=== PATIENT | male | born 1970 | race Caucasian/White ===

== ENCOUNTER 2016-05-07 | Emergency (ER) | payer MEDICAID | END 2016-05-07 05:45 | disposition home or self-care (01) | DX: L30.9 Dermatitis, unspecified (principal) ==

== ENCOUNTER 2016-05-29 05:59 | Emergency (ER) | payer MEDICAID ==
[2016-05-29] MEDS ORDERED: LORazepam 0.5 MG TABLET PO STA (06:59)
[2016-05-29] MEDS ORDERED: LORazepam 0.5 MG TABLET ONE (07:04)
[2016-05-29] MEDS ORDERED: HYDROCORTISONE 1% CREAM 28 GM TUBE TOP STA (07:41)
== END 2016-05-29 09:08 | disposition home or self-care (01) ==
DX: F41.9 Anxiety disorder, unspecified (principal); L29.0 Pruritus ani; Z59.0 Homelessness; I10 Essential (primary) hypertension; F17.200 Nicotine dependence, unspecified, uncomplicated
CPT/HCPCS: 99283; A9270

== ENCOUNTER 2016-06-16 13:10 | Outpatient (CLI) | payer MEDICAID | END 2016-06-16 13:11 | disposition home or self-care (01) | DX: N43.40 Spermatocele of epididymis, unspecified (principal); N43.3 Hydrocele, unspecified ==

== ENCOUNTER 2017-03-23 07:59 | Emergency (ER) | payer MEDICAID ==
--- NOTE | 2017-03-23 08:10 | ED Physician Documentation ---
PD HPI URI - Stated complaint Stated Complaint: COUGH - History obtained from History obtained from: Patient - History of Present Illness Timing - onset: How many weeks ago (1) Timing duration: Weeks (1) Timing details: Gradual onset, Still present Associated symptoms: Fever, Chills, Productive cough, Dyspnea. No: NVD, Bilateral edema Contributing factors: No: Sick contact, Travel, Immunocompromised, COPD / asthma Worsened by: Activity Similar symptoms before: Has not had sx before Recently seen: Not recently seen Review of Systems Constitutional: reports: Fever, Chills, Myalgias, Fatigue. denies: Weight Loss Nose: reports: Congestion. denies: Rhinorrhea / runny nose, Sinus pressure / pain Throat: denies: Sore throat Cardiac: denies: Chest pain / pressure, Palpitations Respiratory: reports: Dyspnea, Cough, Wheezing GI: denies: Vomiting, Diarrhea Skin: denies: Rash Neurologic: reports: Generalized weakness Endocrine: denies: Weight loss Immunocompromised: denies: Immunocompromised PD PAST MEDICAL HISTORY - Past Medical History Cardiovascular: Hypertension - Past Surgical History Past Surgical History: No General: Appendectomy - Present Medications Home Medications: Ambulatory Orders Medication Instructions Recorded Confirmed Albuterol Sulf [Ventolin Hfa 1 - 2 puffs INH Q4HR PRN #1 inhaler 03/23/17 Inhaler] Benzonatate [Tessalon] 100 mg PO TID PRN #25 capsule 03/23/17 Dexamethasone [Decadron] 4 mg PO DAILY #5 tablet 03/23/17 Doxycycline Monohydrate 100 mg PO BID #20 tablet 03/23/17 guaiFENesin/CODEINE [Robitussin AC] 10 ml PO Q6H PRN #240 ml 03/23/17 - Allergies Allergies/Adverse Reactions: Allergies Allergy/AdvReac Type Severity Reaction Status Date / Time No Known Drug Allergies Allergy Verified 03/23/17 08:12 - Living Situation Living Situation: reports: Alone Living Arrangement: reports: Homeless - Social History Does the pt smoke?: Yes Smoking Status: Current every day smoker Does the pt drink ETOH?: Yes Does the pt have substance abuse?: No - Immunizations Immunizations are current?: No - POLST Patient has POLST: No PD ED PE NORMAL - Vitals Vital signs reviewed: Yes - General General: Alert and oriented X 3, Well developed/nourished, Other (wheezy repetitive cough. No resp distress.) - HEENT HEENT: Ears normal, Pharynx benign - Neck Neck: Supple, no meningeal sign, No adenopathy - Cardiac Cardiac: RRR, No murmur - Respiratory Respiratory: No respiratory distress. No: Clear bilaterally (wheezing diffusely. No coarse sounds. ) - Abdomen Abdomen: Soft, Non tender - Back Back: No CVA TTP - Derm Derm: Normal color, Warm and dry - Extremities Extremities: No deformity, No tenderness to palpate, Normal ROM s pain, No edema , No calf tenderness / cord - Neuro Neuro: Alert and oriented X 3, No motor deficit, Normal speech - Psych Psych: Normal mood, Normal affect Results - Vitals Vitals: Vital Signs - 24 hr 03/23/17 03/23/17 03/23/17 08:09 08:45 10:44 Temperature 37.7 C H 37.8 C H Heart Rate 76 81 97 Respiratory 16 16 18 Rate Blood Pressure 110/72 90/69 O2 Saturation 98 97 Oxygen O2 Source Room air - Labs Labs: Laboratory Tests 03/23/17 03/23/17 08:47 08:47 WBC 15.9 H RBC 3.99 L Hgb 13.2 L Hct 37.9 L MCV 95.1 H MCH 33.2 H MCHC 34.9 RDW 13.1 Plt Count 584 H MPV 5.7 L Neut # 12.5 H Lymph # 1.[address] [place] # 2.2 H Eos # 0.0 Baso # 0.1 Absolute Nucleated RBC 0.00 Nucleated RBC % 0.0 Manual Slide Review Indicated Platelet Estimate INCREASED (>450,000) RBC Morph Micro Appear 1+ ANISOCYTOSIS Sodium 129 L Potassium 3.9 Chloride 90 L Carbon Dioxide 23 Anion Gap 16.0 H BUN 8 Creatinine 0.8 Estimated GFR (MDRD) 103 Glucose 122 H Calcium 8.9 Total Bilirubin 1.1 H AST 17 ALT 20 Alkaline Phosphatase 68 Total Protein 7.1 Albumin 3.2 Globulin 3.9 Albumin/Globulin Ratio 0.8 L Lipase 19 L - Rads (name of study) chest Radiology: Prelim report reviewed (lingular infiltrate c/w pneumonia. Recommend 4 week repeat to ensure resolution), EMP read contemporaneously PD MEDICAL DECISION MAKING - ED course Complexity details: reviewed old records, reviewed results, re-evaluated patient , considered differential, d/w patient Departure - Departure Disposition: 01 Home, Self Care Clinical Impression: Cough Pneumonia Qualifiers: Pneumonia type: due to unspecified organism Laterality: left Lung location: lower lobe of lung Qualified Code(s): J18.1 - Lobar pneumonia, unspecified organism Condition: Stable Record reviewed to determine appropriate education?: Yes Instructions: ED Pneumonia Adult Prescriptions: Albuterol Sulf [Ventolin Hfa Inhaler] 1 - 2 puffs INH Q4HR PRN #1 inhaler PRN Reason: Shortness Of Air/Wheezing Benzonatate [Tessalon] 100 mg PO TID PRN #25 capsule PRN Reason: Cough Dexamethasone [Decadron] 4 mg PO DAILY #5 tablet Doxycycline Monohydrate 100 mg PO BID #20 tablet guaiFENesin/CODEINE [Robitussin AC] 10 ml PO Q6H PRN #240 ml PRN Reason: Cough Comments: Lots of fluids. Use albuterol inhaler 2 puffs 4 times a day for the next several weeks. Added puffs if needed for wheezing and cough. Decadron steroid daily for 5 more days to reduce cough and bronchial irritation. Use cough medicine and benzoin 08 if needed for cough. Doxycycline twice daily for 10 days for the pneumonia infection. Recheck if not improving over the next few days. You will likely have a cough continue for a few weeks even after you are feeling improved. Discharge Date/Time: 03/23/17 10:50
[2017-03-23] MEDS ORDERED: guaiFENesin/CODEINE 5 ML UDC PO STA (08:24)
[2017-03-23] MEDS ORDERED: ALBUTEROL NEB 2.5 MG/3 ML INH STA (08:24)
[2017-03-23] MEDS ORDERED: DEXAMETHASONE 10 MG/ML VIAL PO STA (08:24)
[2017-03-23] MEDS ORDERED: BENZONATATE 100 MG CAPSULE PO STA (08:24)
[2017-03-23] MEDS ORDERED: ACETAMINOPHEN 325 MG TABLET PO STA (08:24)
[2017-03-23 08:52] LABS: BASOPHILS # (AUTO) 0.1 10^3/uL (0.0-0.1); BASOPHILS % (AUTO) 0.6 %; HGB - HEMOGLOBIN 13.2 g/dL (14.0-18.0); LYMPHOCYTES # (AUTO) 1.2 10^3/uL (1.5-3.5); LYMPHOCYTES % (AUTO) 7.4 %; MEAN CORPUSCULAR HEMOGLOBIN 33.2 pg (27.0-31.0); MEAN CORPUSCULAR HGB CONC 34.9 g/dL (32.0-36.0); MEAN CORPUSCULAR VOLUME 95.1 fL (80.0-94.0); MEAN PLATELET VOLUME 5.7 fL (7.4-11.4); MONOCYTES # (AUTO) 2.2 10^3/uL (0.0-1.0); MONOCYTES % (AUTO) 13.8 %; NEUTROPHILS # (AUTO) 12.5 10^3/uL (1.5-6.6); NEUTROPHILS % (AUTO) 78.2 %; PLT - PLATELET COUNT 584 10^3/uL (130-450); RED BLOOD COUNT 3.99 10^6/uL (4.70-6.10); RED CELL DISTRIBUTION WIDTH 13.1 % (12.0-15.0); WHITE BLOOD COUNT 15.9 x10^3/uL (4.8-10.8)
--- NOTE | 2017-03-23 08:54 | XRAY Report ---
EXAM: CHEST RADIOGRAPHY EXAM DATE: 03/23/2017 08:40 AM. CLINICAL HISTORY: Chest pain left-sided. Cough for 7 days. COMPARISON: None. TECHNIQUE: 2 views. FINDINGS: Lungs/Pleura: Lingular masslike consolidation noted. No pleural effusions or pneumothorax. Mediastinum: Heart and mediastinal contours are unremarkable. Other: Mild degenerative changes of the thoracic spine. IMPRESSION: 1. Lingular masslike consolidation most likely representing pneumonia. Follow-up radiographs are ivy mmended in 4 weeks to assess for resolution. [facility] Referring Provider Line: [phone] SITE ID: [id number]
--- NOTE | 2017-03-23 08:54 | XRAY Preliminary Report ---
Exam: XR CHEST 2 VIEW X-RAY IMPRESSION: 1. Lingular masslike consolidation most likely representing pneumonia. Follow-up radiographs are ivy mmended in 4 weeks to assess for resolution. [facility] SITE ID: [id number]
[2017-03-23] MEDS ORDERED: DOXYCYCLINE 100 MG TABLET PO STA (08:58)
[2017-03-23 09:06] LABS: ALBUMIN 3.2 g/dL (3.2-5.5); ALBUMIN/GLOBULIN RATIO 0.8 (1.0-2.2); BILIRUBIN,TOTAL 1.1 mg/dL (0.2-1.0); CALCIUM 8.9 mg/dL (8.5-10.3); CREATININE 0.8 mg/dL (0.6-1.2); TOTAL PROTEIN 7.1 g/dL (6.7-8.2)
[2017-03-23 09:17] LABS: PLATELET ESTIMATE, MANUAL INCREASED (>450,000) (NORMAL); RBC MORPHOLOGY (MULTIPLE) 1+ ANISOCYTOSIS (NORMAL)
[2017-03-23 10:45] VITALS: BP 90/69
== END 2017-03-23 10:50 | disposition home or self-care (01) ==
LOC: ED 07:59
DX: J18.9 Pneumonia, unspecified organism (principal); I10 Essential (primary) hypertension; F17.200 Nicotine dependence, unspecified, uncomplicated; Z59.0 Homelessness
CPT/HCPCS: 36415; 71046; 80053; 83690; 85025; 94640; 99283; A9270; J7613

== ENCOUNTER 2017-03-31 06:58 | Emergency (ER) | payer MEDICAID ==
[2017-03-31] MEDS ORDERED: SODIUM CHLORIDE 0.9% 1,000 ML IV ONE (07:19)
--- NOTE | 2017-03-31 07:23 | ED Physician Documentation ---
History of Present Illness - Stated complaint Stated Complaint: DIFFICULTY BREATHING - Chief complaint Chief Complaint: Resp - Additonal information Additional information: hx from pt 47 male states no Pmhx homeless staying at [facility] where many people are sick with cough cold sx and living in close quarters no recent travel seen in ER 03/23 for cough and dx pna rx doxy decadron tessalon and albuterol not sure if he he finished all the antibiotics " I took the blue pills but not all the pink ones" still coughing feels SOA his chest hurts when he coughs fatigue no documented fever no myalgais no NV some loose BM no edema or leg pain Review of Systems Constitutional: reports: Fatigue. denies: Fever, Chills, Myalgias Cardiac: reports: Chest pain / pressure (with coughing) Respiratory: reports: Dyspnea, Cough GI: reports: Diarrhea. denies: Abdominal Pain, Nausea, Vomiting Musculoskeletal: denies: Extremity pain, Extremity swelling Endocrine: denies: Easy bruising / bleeding Immunocompromised: denies: Immunocompromised PD PAST MEDICAL HISTORY - Past Medical History Cardiovascular: Hypertension Other Past Medical History: pt states he does not have a hx of HTN despite NN - Past Surgical History Past Surgical History: No General: Appendectomy - Present Medications Home Medications: Ambulatory Orders Medication Instructions Recorded Confirmed Albuterol Sulf [Ventolin Hfa 1 - 2 puffs INH Q4HR PRN #1 inhaler 03/23/17 Inhaler] Benzonatate [Tessalon] 100 mg PO TID PRN #25 capsule 03/23/17 03/31/17 guaiFENesin/CODEINE [Robitussin AC] 5 - 10 ml PO Q6H PRN #120 udc 03/31/17 predniSONE [Deltasone] 20 mg PO [id number] #21 tab 03/31/17 - Allergies Allergies/Adverse Reactions: Allergies Allergy/AdvReac Type Severity Reaction Status Date / Time No Known Drug Allergies Allergy Verified 03/31/17 07:05 - Social History Does the pt smoke?: Yes Smoking Status: Current every day smoker Does the pt drink ETOH?: Yes Does the pt have substance abuse?: No - Immunizations Immunizations are current?: No - POLST Patient has POLST: No PD ED PE NORMAL - Vitals Vital signs reviewed: Yes - General General: Alert and oriented X 3, Other (anxious) - HEENT HEENT: PERRL - Neck Neck: Supple, no meningeal sign - Cardiac Cardiac: RRR - Respiratory Respiratory: Other (deep cough, no wheeze) - Abdomen Abdomen: Soft, Non tender - Derm Derm: Normal color - Extremities Extremities: No deformity, No tenderness to palpate, Normal ROM s pain, No edema , No calf tenderness / cord - Neuro Neuro: Alert and oriented X 3 Results - Vitals Vitals: Vital Signs - 24 hr 03/31/17 03/31/17 07:03 08:25 Temperature 37.1 C Heart Rate 87 45 L Respiratory 20 18 Rate Blood Pressure 101/70 104/75 O2 Saturation 97 95 Oxygen O2 Source Room air - Labs Labs: Laboratory Tests 03/31/17 03/31/17 03/31/17 07:15 07:15 07:30 WBC 8.6 RBC 4.06 L Hgb 13.0 L Hct 39.9 L MCV 98.3 H MCH 32.0 H MCHC 32.5 RDW 13.7 Plt Count 556 H MPV 5.6 L Neut # 6.0 Lymph # 1.1 L [place] # 1.3 H Eos # 0.1 Baso # 0.0 Absolute Nucleated RBC 0.00 Nucleated RBC % 0.0 Manual Slide Review Indicated RBC Morph Micro Appear 1+ ANISOCYTOSIS Sodium 134 L Potassium 4.0 Chloride 97 L Carbon Dioxide 27 Anion Gap 10.0 BUN 10 Creatinine 0.7 Estimated GFR (MDRD) 120 Glucose 95 Lactic Acid 1.4 Calcium 8.7 - Rads (name of study) CXR Radiology: See rad report (prior infiltrate improved, increased perihilar bronchial thickening and mild perihilar oapcities (more c/w RAD)) Departure - Departure Disposition: Home, Self Care Clinical Impression: Pneumonia Qualifiers: Pneumonia type: due to unspecified organism Laterality: left Lung location: unspecified part of lung Qualified Code(s): J18.9 - Pneumonia, unspecified organism Reactive airway disease Qualifiers: Asthma severity: unspecified severity Asthma persistence: unspecified Asthma complication type: with acute exacerbation Qualified Code(s): J45.901 - Unspecified asthma with (acute) exacerbation Instructions: ED Reactive Airway Disease Prescriptions: guaiFENesin/CODEINE [Robitussin AC] 5 - 10 ml PO Q6H PRN #120 udc PRN Reason: Cough predniSONE [Deltasone] 20 mg PO [id number] #21 tab Comments: The pneumonia looks much better on xrays to day You still need to get a 6 weeks repeat xray to document full resolution. You don't need more antibiotics at this time. You still have a lot of inflamed airway disease causing the continued symptoms But I did prescribe a stronger cough medication (it contains codeine so no driving or operating machinery) and more steroids to decrease the airway inflammation. Continue using your inhaler - you can use 2 puffs every 4 hr for the cough and trouble breathing. If you smoke please stop. Return if worse
[2017-03-31 07:29] LABS: BASOPHILS % (AUTO) 0.4 %; EOSINOPHILS # (AUTO) 0.1 10^3/uL (0.0-0.7); EOSINOPHILS % (AUTO) 1.2 %; LYMPHOCYTES # (AUTO) 1.1 10^3/uL (1.5-3.5); LYMPHOCYTES % (AUTO) 12.9 %; MEAN CORPUSCULAR HGB CONC 32.5 g/dL (32.0-36.0); MEAN CORPUSCULAR VOLUME 98.3 fL (80.0-94.0); MEAN PLATELET VOLUME 5.6 fL (7.4-11.4); MONOCYTES # (AUTO) 1.3 10^3/uL (0.0-1.0); MONOCYTES % (AUTO) 15.5 %; PLT - PLATELET COUNT 556 10^3/uL (130-450); RED BLOOD COUNT 4.06 10^6/uL (4.70-6.10); RED CELL DISTRIBUTION WIDTH 13.7 % (12.0-15.0); WHITE BLOOD COUNT 8.6 x10^3/uL (4.8-10.8)
[2017-03-31 07:34] LABS: CALCIUM 8.7 mg/dL (8.5-10.3); CREATININE 0.7 mg/dL (0.6-1.2)
[2017-03-31 07:46] LABS: RBC MORPHOLOGY (MULTIPLE) 1+ ANISOCYTOSIS (NORMAL)
--- NOTE | 2017-03-31 08:19 | XRAY Preliminary Report ---
Exam: XR CHEST 2 VIEW X-RAY IMPRESSION: 1. Interval moderate decrease in the prior patchy infiltrate in the lingula. 2. However, slight to moderate worsening bilateral mild perihilar opacity and perihilar bronchial wal l thickening. [facility] SITE ID: [id number]
--- NOTE | 2017-03-31 08:19 | XRAY Report ---
EXAM: CHEST RADIOGRAPHY EXAM DATE: 03/31/2017 07:48 AM. CLINICAL HISTORY: COUGH. COMPARISON: 03/23/2017. TECHNIQUE: 2 views. FINDINGS: Lungs/Pleura: The prior focal patchy opacity lingula is moderately decreased. However, interval sligh t to moderate worsening bilateral mild perihilar opacity and perihilar bronchial wall thickening is n oted. No pleural effusion. No pneumothorax. Normal volumes. Mediastinum: Heart and mediastinal contours are unremarkable. IMPRESSION: 1. Interval moderate decrease in the prior patchy infiltrate in the lingula. 2. However, slight to moderate worsening bilateral mild perihilar opacity and perihilar bronchial wal l thickening. [facility] Referring Provider Line: [phone] SITE ID: [id number]
[2017-03-31 08:27] VITALS: BP 104/75
== END 2017-03-31 09:18 | disposition home or self-care (01) ==
LOC: ED 06:58
DX: J18.9 Pneumonia, unspecified organism (principal); J45.901 Unspecified asthma with (acute) exacerbation; Z59.0 Homelessness; F17.200 Nicotine dependence, unspecified, uncomplicated
CPT/HCPCS: 36415; 71046; 80048; 83605; 85025; 87040; 96360; 99283

== ENCOUNTER 2017-09-30 16:45 | Emergency (ER) | payer MEDICAID ==
[2017-09-30] MEDS ORDERED: LORATADINE 10 MG TABLET PO STA (17:54)
[2017-09-30] MEDS ORDERED: DEXAMETHASONE 10 MG/ML VIAL PO STA (17:54)
--- NOTE | 2017-09-30 18:09 | ED Physician Documentation ---
History of Present Illness - Stated complaint Stated Complaint: POSS ALLERGIC REACTION/MOUTH AND FACE - Chief complaint Chief Complaint: Resp - Additonal information Additional information: hx from pt 47 male to ED with two concers 1) had pna few months ago and has productive cough again 2) has swollen spots on his palate and thinks he has an envirnemtla allergy and is concerned it might sprad to his airways also has been seen by urology for hydrocele and spermatocele and surgery was not recommended but the sprematocele is larger and so he is planning to go back and see urology again - but that is not a concern that brought him to the ER Review of Systems Constitutional: denies: Fever, Chills Throat: reports: Other (palate swelling) Respiratory: reports: Cough GI: denies: Abdominal Pain, Nausea, Vomiting, Diarrhea Endocrine: denies: Easy bruising / bleeding Immunocompromised: denies: Immunocompromised PD PAST MEDICAL HISTORY - Past Medical History Cardiovascular: Hypertension - Past Surgical History Past Surgical History: No General: Appendectomy - Present Medications Home Medications: Ambulatory Orders Medication Instructions Recorded Confirmed Benzonatate [Tessalon] 100 mg PO TID PRN #20 capsule 09/30/17 Loratadine [Claritin] 10 mg PO DAILY #3 tablet 09/30/17 predniSONE [Deltasone] 60 mg PO DAILY 3 Days tablet 09/30/17 - Allergies Allergies/Adverse Reactions: Allergies Allergy/AdvReac Type Severity Reaction Status Date / Time No Known Drug Allergies Allergy Verified 09/30/17 16:52 - Social History Does the pt smoke?: Yes Smoking Status: Current every day smoker Does the pt drink ETOH?: Yes Does the pt have substance abuse?: No - Immunizations Immunizations are current?: No - POLST Patient has POLST: No PD ED PE NORMAL - Vitals Vital signs reviewed: Yes - General General: Alert and oriented X 3 - HEENT HEENT: Moist mucous membranes, Other (small spots of edema s erytehma to exudate to palate, no uvula or tongue swelling) - Neck Neck: Supple, no meningeal sign - Cardiac Cardiac: RRR - Respiratory Respiratory: No respiratory distress, Clear bilaterally, Other (no ronchi, coughs) - Derm Derm: Normal color, Other (no hives) - Neuro Neuro: Alert and oriented X 3 Results - Vitals Vitals: Vital Signs - 24 hr 09/30/17 16:49 Temperature 36.8 C Heart Rate 78 Respiratory 22 Rate Blood Pressure 116/83 H O2 Saturation 98 Oxygen O2 Source Room air - EKG (time done) 1700 Rate: Rate (enter#) (70) Rhythm: NSR Sprakers: Normal Intervals: Normal HI Ischemia: ST elevation c/w repol Other comments: Other comments (EKG ordered per protocol from triage) - Rads (name of study) CXR Radiology: See rad report (improving residual streaky opacities c/w resolving infection) PD MEDICAL DECISION MAKING - Sepsis Event Vital Signs: Vital Signs - 24 hr 09/30/17 16:49 Temperature 36.8 C Heart Rate 78 Respiratory 22 Rate Blood Pressure 116/83 H O2 Saturation 98 Oxygen O2 Source Room air Departure - Departure Disposition: 01 Home, Self Care Clinical Impression: Allergic reaction Qualifiers: Encounter type: initial encounter Qualified Code(s): T78.40XA - Allergy, unspecified, initial encounter Condition: Good Instructions: ED Drug React Allergic Prescriptions: Benzonatate [Tessalon] 100 mg PO TID PRN #20 capsule PRN Reason: to ease cough Loratadine [Claritin] 10 mg PO DAILY #3 tablet predniSONE [Deltasone] 60 mg PO DAILY 3 Days tablet Comments: The xray does not show pneumonia - the prior infection is resolving I have prescribed medications to ease your allergic reaction and cough Please follow up with your urologist as planned
[2017-09-30] MEDS ORDERED: CHERRY SYRUP 10 ML UDC PO ONE (18:17)
--- NOTE | 2017-09-30 18:43 | XRAY Report ---
Procedure Date: 09/30/2017 Accession Number: [id number] / [id number] Procedure: XR - Chest 2 View X-Ray CPT Code: 04267 FULL RESULT: EXAM: CHEST RADIOGRAPHY EXAM DATE: 09/30/2017 06:16 PM. CLINICAL HISTORY: Cough. COMPARISON: Chest radiograph 03/31/2017 and 03/23/2017. TECHNIQUE: 2 views. FINDINGS: Lungs/Pleura: Minimal residual streaky opacity in the lingula, likely postinfectious/inflammatory given prior pneumonia at this site. No new/worsening airspace opacity. Mild bronchial wall thickening, improved since prior exam. No pleural effusion. No pneumothorax. Lung volumes are borderline large. Mediastinum: Heart and mediastinal contours are unremarkable. Other: None. IMPRESSION: 1. No dense focal consolidation with improving streaky opacities in the lingula, likely postinfectious/inflammatory. 2. Mild bronchial wall thickening with borderline pulmonary hyperexpansion, the former improved compared to prior exam. Findings are nonspecific and can be seen with reactive airways disease or bronchitis. [facility]
[2017-09-30 19:28] VITALS: BP 110/72
== END 2017-09-30 19:28 | disposition home or self-care (01) ==
LOC: ED 16:45
DX: T78.40XA Allergy, unspecified, initial encounter (principal); I10 Essential (primary) hypertension; F17.200 Nicotine dependence, unspecified, uncomplicated
CPT/HCPCS: 71046; 93005; 99283; A9270

== ENCOUNTER 2019-12-18 00:37 | Emergency (ER) | payer MEDICAID ==
[2019-12-18 00:51] VITALS: BP 119/73
--- NOTE | 2019-12-18 01:54 | ED Physician Documentation ---
History of Present Illness - Stated complaint Stated Complaint: TOE SWELLING - Chief complaint Chief Complaint: General - History obtained from History obtained from: Patient - History of Present Illness Timing: Other (2 months) Pain level max: 2 Pain level now: 0 - Additonal information Additional information: patient sustained injury to left 2nd toe in October for which he evaluated in this ED, diagnosed with fracture of left second proximal phalanx. He was given a walking boot and instructed to follow up with orthopedic surgery within one week (this is documented on the discharge sheets and office information for both [facility] and [facility] were provided). Despite this, patient comes to ED tonight for reevaluation of his toe. He says it still is painful, but mildly so and has been steadily improving since the injury, and that swelling also persists but has similarly been slowly improving. He tells me that he was under the impression that he was supposed to return to this emergency department for follow up and that is the only reason he is here. He denies new injury and says he has been wearing the boot provided him on previous ED visit Review of Systems Musculoskeletal: reports: Other (mild swelling and tenderness of left second toe, persisting but improving since injury 2 months ago) Neurologic: denies: Focal weakness, Numbness PD PAST MEDICAL HISTORY - Past Medical History Past Medical History: Yes Cardiovascular: Hypertension - Past Surgical History Past Surgical History: No General: Appendectomy HEENT: Tonsil/Adenoidectomy - Present Medications Home Medications: Ambulatory Orders Medication Instructions Recorded Confirmed No Known Home Medications 12/18/19 12/18/19 - Allergies Allergies/Adverse Reactions: Allergies Allergy/AdvReac Type Severity Reaction Status Date / Time No Known Drug Allergies Allergy Verified 12/18/19 00:48 - Social History Does the pt smoke?: Yes Smoking Status: Current every day smoker Does the pt drink ETOH?: Yes Does the pt have substance abuse?: No - Immunizations Immunizations are current?: No - POLST Patient has POLST: No PD ED PE NORMAL - Vitals Vital signs reviewed: Yes - General General: Alert and oriented X 3, No acute distress, Well developed/nourished - Extremities Extremities: Other (minimal swelling and tenderness to palpation of left second toe at proximal phalanx) - Neuro Neuro: No motor deficit, No sensory deficit Results - Vitals Vitals: Vital Signs - 24 hr 12/18/19 12/18/19 00:44 04:57 Temperature 36.5 C Heart Rate 76 70 Respiratory 18 16 Rate Blood Pressure 119/73 119/73 O2 Saturation 99 98 Oxygen O2 Source Room air PD MEDICAL DECISION MAKING - ED course Complexity details: reviewed old records, considered differential, d/w patient ED course: patient presents 2 months after previous ED evaluation for fractured left 2nd proximal (toe) phalanx with persistent but steadily improving swelling and tenderness. He indicates that he was under the impression that he was to return to this ED for follow up/recheck. Emergent testing not indicated (including reimaging). Departure - Departure Disposition: Home, Self Care Clinical Impression: Toe fracture, left Condition: Good Instructions: ED Fx Foot Follow-Up: [facility] [Provider Group] [facility] [Provider Group] Comments: You need to change the gauze and retape the toes ("octavio splinting") once per day, and you can discontinue the octavio splinting after 7-10 days. If you continue to have pain or swelling, follow up with the orthopedic group (information for the office location and phone number are included in these discharge sheets). Discharge Date/Time: 12/18/19 04:58
== END 2019-12-18 04:58 | disposition home or self-care (01) ==
LOC: ED 00:37
DX: S92.502D Displaced unspecified fracture of left lesser toe(s), subsequent encounter for fracture with routine healing (principal); F17.200 Nicotine dependence, unspecified, uncomplicated
CPT/HCPCS: 99282

== ENCOUNTER 2020-05-17 00:27 | Emergency (ER) | payer MEDICAID ==
[2020-05-17] MEDS ORDERED: IPRATROPIUM/ALBUTEROL 3 ML NEB INH STA (00:49)
[2020-05-17] MEDS ORDERED: ALBUTEROL NEB 2.5 MG/3 ML INH STA (00:49)
[2020-05-17] MEDS ORDERED: ALBUTEROL 1 PUFF INH STA (00:49)
--- NOTE | 2020-05-17 00:55 | ED Physician Documentation ---
History of Present Illness - Stated complaint Stated Complaint: SOA - Chief complaint Chief Complaint: Resp - History obtained from History obtained from: Patient - Additonal information Additional information: 50-year-old man with history of chronic bronchitis, prior history of pneumonia 3 years ago requiring hospitalization, daily smoker, undomiciled, presents with Acute shortness of breath starting a few hours prior to arrival but did not self resolve. Patient states that he does not take medications and does not have a rescue inhaler. He has not been feeling sick recently and endorses no fever chills chest pain or cough. Does experience some chest tightness at present and moderate dyspnea, worse with exertion. no nausea or diaphoresis. Review of Systems Ten Systems: 10 systems reviewed and negative Constitutional: denies: Fever, Chills Cardiac: denies: Chest pain / pressure Respiratory: reports: Dyspnea, Wheezing. denies: Cough PD PAST MEDICAL HISTORY - Past Medical History Cardiovascular: Hypertension - Past Surgical History Past Surgical History: No General: Appendectomy HEENT: Tonsil/Adenoidectomy - Present Medications Home Medications: Ambulatory Orders Medication Instructions Recorded Confirmed Albuterol Oral Soln [Ventolin] 2 mg PO Q6H PRN #5 ml 05/17/20 - Allergies Allergies/Adverse Reactions: Allergies Allergy/AdvReac Type Severity Reaction Status Date / Time No Known Drug Allergies Allergy Verified 05/17/20 00:39 - Social History Does the pt smoke?: Yes Smoking Status: Current every day smoker Does the pt drink ETOH?: Yes Does the pt have substance abuse?: No - Immunizations Immunizations are current?: No - POLST Patient has POLST: No PD ED PE NORMAL - Vitals Vital signs reviewed: Yes - General General: Alert and oriented X 3, Other (uncomfortable appearing) - HEENT HEENT: Atraumatic, PERRL, EOMI - Neck Neck: Supple, no meningeal sign - Cardiac Cardiac: RRR - Respiratory Respiratory: Other (BL diffuse wheezing, no increased wob) - Abdomen Abdomen: Non tender, Non distended - Male Male : Deferred - Rectal Rectal: Deferred - Derm Derm: Normal color, Warm and dry - Extremities Extremities: No deformity Results - Vitals Vitals: Vital Signs - 24 hr 05/17/20 05/17/20 05/17/20 00:30 00:54 01:30 Temperature 97.2 C H 36.2 C L Heart Rate 79 79 80 Respiratory 22 22 Rate Blood Pressure 95/63 O2 Saturation 99 Oxygen O2 Source Room air PD MEDICAL DECISION MAKING - ED course ED course: 50-year-old man presents with apparent mild COPD exacerbation. Will give duo nebs and reassess. wheezing resolved with nebs. strict return precautions given. script for rescue inhaler given. patient will f/u paz nino in clinic. Departure - Departure Disposition: 01 Home, Self Care Clinical Impression: COPD exacerbation Condition: Good Instructions: COPD Dc, ALBUTEROL Oral Inhaler Follow-Up: Stefanie Zheng MD [Provider Admit Priv/Credential] - Prescriptions: Albuterol Oral Soln [Ventolin] 2 mg PO Q6H PRN #5 ml PRN Reason: shortness of breath Comments: You were seen in the emergency department for an exacerbation of your chronic bronchitis. You were prescribed an albuterol inhaler. Whenever you have shortness of breath you should try to using the inhaler and it may help. Return to the emergency department if you develop any new or worsening symptoms or other concerns. Follow-up at the [facility] clinic or with Dr. Zheng. Paz nino in clinic [address] [facility]. [facility]
[2020-05-17 02:07] VITALS: BP 100/70
--- NOTE | 2020-05-17 05:33 | XRAY Report ---
PROCEDURE: Chest 1 View X-Ray INDICATIONS: sob TECHNIQUE: One view of the chest was acquired. COMPARISON: 2 view chest 09/30/2017 FINDINGS: Surgical changes and devices: None. Lungs and pleura: No pleural effusions or pneumothorax. Lungs are clear. Mediastinum: Mediastinal contours appear normal. Heart size is normal. Bones and chest wall: No suspicious bony lesions. Overlying soft tissues appear unremarkable. IMPRESSION: Normal for age, source of current shortness of breath is not seen. Reviewed by: Art Alvarez MD on 05/17/2020 5:32 AM PST Approved by: Art Alvarez MD on 05/17/2020 5:32 AM PST Station ID: [id number]
== END 2020-05-17 02:18 | disposition home or self-care (01) ==
LOC: ED 00:27
DX: J44.1 Chronic obstructive pulmonary disease with (acute) exacerbation (principal); F17.200 Nicotine dependence, unspecified, uncomplicated; I10 Essential (primary) hypertension; Z59.0 Homelessness
CPT/HCPCS: 94640; 94664; 99284

== ENCOUNTER 2020-05-17 10:42 | Outpatient (CLI) | payer MEDICAID | END 2020-05-17 10:43 | disposition EMS.NT | LOC: EMS 10:42 | DX: Z03.89 Encounter for observation for other suspected diseases and conditions ruled out (principal); Z59.0 Homelessness ==

== ENCOUNTER 2020-06-25 18:45 | Emergency (ER) | payer MEDICAID ==
--- OUTSIDE RECORDS SUMMARY | 2020-06-25 18:49 | EXTERNAL MEDICAL SUMMARY RPT | Continuity of Care Document ---
:1970 Demographics Phone Unavailable Preferred Language Unknown Marital Status Unknown Episcopalian Affiliation Unknown Race Unknown Ethnic Group Unknown Author Organization [place] Address [address] [phone] Phone Social History date description facility [phone]
--- OUTSIDE RECORDS SUMMARY | 2020-06-25 19:25 | EXTERNAL MEDICAL SUMMARY RPT | Continuity of Care Document ---
:1970 Demographics Phone Unavailable Preferred Language Unknown Marital Status Unknown Catholic Affiliation Unknown Race Unknown Ethnic Group Unknown Author Organization [place] Address [address] [place] [address] Phone Social History date description facility [phone]
--- NOTE | 2020-06-25 19:28 | ED Physician Documentation ---
PD HPI UPPER EXT INJURY - Stated complaint Stated Complaint: FEET PX - Chief complaint Chief Complaint: Ext Problem - History obtained from History obtained from: Patient - History of Present Illness Location: Both (50-year-old gentleman experiencing homelessness presents because both of his feet hurt from walking too much. Denies fevers or chills.) Review of Systems Constitutional: denies: Fever, Chills Respiratory: reports: Reviewed and negative GI: reports: Reviewed and negative : reports: Reviewed and negative PD PAST MEDICAL HISTORY - Past Medical History Cardiovascular: Hypertension - Past Surgical History Past Surgical History: No General: Appendectomy HEENT: Tonsil/Adenoidectomy - Present Medications Home Medications: Ambulatory Orders Medication Instructions Recorded Confirmed Albuterol Sulfate [Proair Hfa 1 - 2 puffs INH Q4H PRN #1 inhaler 05/17/20 Inhaler] Clindamycin Phos/Benzoyl Perox 1 appful TP BID #2 06/25/20 [Benzaclin Gel 35G Pump] - Allergies Allergies/Adverse Reactions: Allergies Allergy/AdvReac Type Severity Reaction Status Date / Time No Known Drug Allergies Allergy Verified 06/25/20 19:01 - Social History Does the pt smoke?: Yes Smoking Status: Current every day smoker Does the pt drink ETOH?: Yes Does the pt have substance abuse?: No - Immunizations Immunizations are current?: No - POLST Patient has POLST: No PD ED PE NORMAL - Vitals Vital signs reviewed: Yes - General General: Alert and oriented X 3, No acute distress - Extremities Extremities: Other (He has maceration of the soles of both feet with 7 at some evidence of pitting keratolysis. 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 Departure - Departure Disposition: 01 Home, Self Care Clinical Impression: Pitted keratolysis Condition: Good Record reviewed to determine appropriate education?: Yes Prescriptions: Clindamycin Phos/Benzoyl Perox [Benzaclin Gel 35G Pump] 1 appful TP BID #2 Comments: Apply the clindamycin to your feet twice a day until symptoms are gone. Then you can use it as needed. Keep your feet dry as much as possible.
[2020-06-25 21:03] VITALS: BP 112/69
== END 2020-06-25 21:03 | disposition home or self-care (01) ==
LOC: ED 18:45
DX: L08.89 Other specified local infections of the skin and subcutaneous tissue (principal); M79.671 Pain in right foot; M79.672 Pain in left foot; Z59.0 Homelessness; I10 Essential (primary) hypertension; F17.200 Nicotine dependence, unspecified, uncomplicated
CPT/HCPCS: 99282; 99283

== ENCOUNTER 2020-06-26 03:06 | Emergency (ER) | payer MEDICAID ==
--- OUTSIDE RECORDS SUMMARY | 2020-06-26 03:09 | EXTERNAL MEDICAL SUMMARY RPT | Continuity of Care Document ---
:1970 Demographics Phone Unavailable Preferred Language Unknown Marital Status Unknown Temple Affiliation Unknown Race Unknown Ethnic Group Unknown Author Organization [place] Address [address] [phone] Phone Social History date description facility [phone]
--- OUTSIDE RECORDS SUMMARY | 2020-06-26 03:13 | EXTERNAL MEDICAL SUMMARY RPT | Continuity of Care Document ---
:1970 Demographics Phone Unavailable Preferred Language Unknown Marital Status Unknown Mormon Affiliation Unknown Race Unknown Ethnic Group Unknown Author Organization [place] Address [address] [place] [address] Phone Social History date description facility [phone]
--- NOTE | 2020-06-26 04:37 | ED Physician Documentation ---
PD HPI DYSPNEA - Stated complaint Stated Complaint: SOA - Chief complaint Chief Complaint: General - History obtained from History obtained from: Patient - History of Present Illness Timing - onset: Chronic Timing - onset during: Light activity Timing - duration: Years Timing - details: Gradual onset, Waxing and waning Inciting event(s): Allergic rxn/anaphylaxis (exposure to cold and pollens). No: URI Improved by: Inhaler/neb Worsened by: Exertion, Coughing Associated symptoms: Wheezing. No: Cough, Hemoptysis, Chest pain / discomfort Similar symptoms before: Diagnosis (pneumonia and RAD) Recently seen: Emergency Dept - Additional information Additional information: 50-year-old homeless male has come into the emergency department earlier in the day today complaining of some pain in his feet he has some large blisters on his feet and is recommended he get off of his feet. He is come back in here early this morning with chief complaint of shortness of air. When questioned further he states this is not changed from his normal and that he really needs to get warmed up. He has used an inhaler previously. Review of Systems Constitutional: denies: Fever Eyes: denies: Decreased vision Ears: denies: Ear pain Nose: denies: Rhinorrhea / runny nose, Congestion Throat: denies: Sore throat Cardiac: denies: Chest pain / pressure, Palpitations Respiratory: reports: Dyspnea, Wheezing. denies: Cough GI: denies: Abdominal Pain, Nausea : denies: Dysuria PD PAST MEDICAL HISTORY - Past Medical History Past Medical History: Yes Cardiovascular: Hypertension - Past Surgical History Past Surgical History: No General: Appendectomy HEENT: Tonsil/Adenoidectomy - Present Medications Home Medications: Ambulatory Orders Medication Instructions Recorded Confirmed Albuterol Sulfate [Proair Hfa 1 - 2 puffs INH Q4H PRN #1 inhaler 05/17/20 Inhaler] Clindamycin Phos/Benzoyl Perox 1 appful TP BID #2 06/25/20 [Benzaclin Gel 35G Pump] Albuterol Sulf [Ventolin Hfa 1 - 2 puffs INH Q4HR PRN #1 inhaler 06/26/20 Inhaler] - Allergies Allergies/Adverse Reactions: Allergies Allergy/AdvReac Type Severity Reaction Status Date / Time No Known Drug Allergies Allergy Verified 06/25/20 19:01 - Social History Does the pt smoke?: Yes Smoking Status: Current every day smoker Does the pt drink ETOH?: Yes Does the pt have substance abuse?: No - Immunizations Immunizations are current?: No - POLST Patient has POLST: No PD ED PE NORMAL - Vitals Vital signs reviewed: Yes (Normal) - General General: Alert and oriented X 3, No acute distress, Well developed/nourished - HEENT HEENT: Atraumatic, PERRL, EOMI - Neck Neck: Supple, no meningeal sign, No bony TTP - Cardiac Cardiac: RRR, No murmur - Respiratory Respiratory: No respiratory distress, Other (There are scattered wheezes and rhonchi throughout but with fair air movement) - Abdomen Abdomen: Soft, Non tender - Back Back: No CVA TTP, No spinal TTP - Derm Derm: Normal color, Warm and dry, No rash - Extremities Extremities: No deformity, Other (The bottoms of the feet have large blisters consistent with friction blisters.) - Neuro Neuro: Alert and oriented X 3, web site specialist 2-12 intact, No motor deficit, No sensory deficit, Other (The patient's speech demonstrates a bit of circumlocution. There is some content to this but it does not seem to lead anywhere.) Eye Opening: Spontaneous Motor: Obeys Commands Verbal: Oriented GCS Score: 15 - Psych Psych: Normal mood, Normal affect Results - Vitals Vitals: Vital Signs - 24 hr 06/26/20 06/26/20 03:09 03:30 Temperature 36.4 C L 36.4 C L Heart Rate 75 75 Respiratory 18 18 Rate Blood Pressure 107/61 107/61 O2 Saturation 99 99 Oxygen O2 Source Room air - Rads (name of study) chest 2-view Radiology: Prelim report reviewed (Impression: 1. Normal heart and lungs.), EMP read indepedently, See rad report PD MEDICAL DECISION MAKING - ED course Complexity details: reviewed old records, reviewed results, re-evaluated patient, considered differential, d/w patient ED course: 50-year-old male of slight build has some scattered wheezes and rhonchi but has fair air movement. This appears chronic for the patient. He is a smoker. And he is homeless. He comes into the emergency department this morning wanting to get warm and complaining of some dyspnea. He denies cough and denies any change in his dyspnea. He has had a prior pneumonia a number of years ago and he wants to look at his x-ray from that previous time. Today we were able to do another x-ray and I was able to compare the two for the patient. We will prescribe the patient an inhaler to use as needed.The patient does have some cameron and he does not have a place to stay but cannot afford to rent a room for several days. I have encouraged him to do this. I have encouraged him to do this until his feet heal up. Departure - Departure Disposition: Home, Self Care Clinical Impression: Pitted keratolysis Reactive airway disease Qualifiers: Asthma severity: mild Asthma persistence: intermittent Asthma complication type: uncomplicated Qualified Code(s): J45.20 - Mild intermittent asthma, uncomplicated Condition: Stable Instructions: ED Reactive Airway Disease Follow-Up: [facility] [Provider Group] Prescriptions: Albuterol Sulf [Ventolin Hfa Inhaler] 1 - 2 puffs INH Q4HR PRN #1 inhaler PRN Reason: Shortness Of Air/Wheezing Comments: Today we have prescribed an inhaler for you and this may be helpful if you develop acute shortness of breath with wheezing. If you are having to use this inhaler more often than every 4 hours come back to see us as you will likely need more aggressive treatment.
[2020-06-26 04:59] VITALS: BP 110/72
--- NOTE | 2020-06-26 09:36 | XRAY Report ---
PROCEDURE: Chest 2 View X-Ray INDICATIONS: SOA wheezing TECHNIQUE: 2 view(s) of the chest. COMPARISON: 09/30/2017. FINDINGS: Surgical changes and devices: None. Lungs and pleura: No pleural effusions or pneumothorax. Lungs are clear. Mediastinum: Mediastinal contours are normal. Heart size is normal. Bones and chest wall: No suspicious bony abnormalities. Soft tissues appear unremarkable. IMPRESSION: Chest without acute cardiopulmonary abnormalities or focal airspace disease. No significant discrepancy with initial interpretation by overnight radiologist. Reviewed by: Denis Vanessa MD on 06/26/2020 9:34 AM PDT Approved by: Denis Vanessa MD on 06/26/2020 9:34 AM PDT Station ID: [id number]
== END 2020-06-26 05:08 | disposition home or self-care (01) ==
LOC: ED 03:06
DX: J45.20 Mild intermittent asthma, uncomplicated (principal); L08.89 Other specified local infections of the skin and subcutaneous tissue; S90.822A Blister (nonthermal), left foot, initial encounter; S90.821A Blister (nonthermal), right foot, initial encounter; X58.XXXA Exposure to other specified factors, initial encounter; I10 Essential (primary) hypertension; F17.200 Nicotine dependence, unspecified, uncomplicated; Z59.0 Homelessness
CPT/HCPCS: 99283; 99284

== ENCOUNTER 2020-08-25 12:08 | Emergency (ER) | payer MEDICAID ==
--- OUTSIDE RECORDS SUMMARY | 2020-08-25 12:10 | EXTERNAL MEDICAL SUMMARY RPT | Continuity of Care Document ---
:1970 Demographics Phone Unavailable Preferred Language Unknown Marital Status Unknown Amish Affiliation Unknown Race Unknown Ethnic Group Unknown Author Organization [place] Address [address] [phone] Phone Allergies Encounters Medications Problems Results
--- OUTSIDE RECORDS SUMMARY | 2020-08-25 12:18 | EXTERNAL MEDICAL SUMMARY RPT | Continuity of Care Document ---
:1970 Demographics Phone Unavailable Preferred Language Unknown Marital Status Unknown Baptist Affiliation Unknown Race Unknown Ethnic Group Unknown Author Organization [place] Address [address] [place] [address] Phone Allergies Encounters Medications Problems Results
[2020-08-25 12:20] VITALS: BP 136/78
[2020-08-25 12:33] LABS: BILIRUBIN,URINE NEGATIVE (NEGATIVE); GLUCOSE, URINE (UA) NEGATIVE (NEGATIVE); KETONES,URINE (UA) NEGATIVE (NEGATIVE); LEUKOCYTE ESTERASE, URINE NEGATIVE (NEGATIVE); NITRITE,URINE NEGATIVE (NEGATIVE); OCCULT BLOOD,URINE MODERATE (NEGATIVE); PROTEIN,URINE NEGATIVE (NEGATIVE); UROBILINOGEN,URINE 0.2 (NORMAL) E.U./dL (NORMAL)
[2020-08-25 12:34] LABS: CLARITY,URINE CLEAR (CLEAR)
--- NOTE | 2020-08-25 12:41 | ED Physician Documentation ---
History of Present Illness - Stated complaint Stated Complaint: MALE - Chief complaint Chief Complaint: General - Additonal information Additional information: 50-year-old male presents the emergency department with a chief complaint of a bloody and somewhat painful ejaculation 2 days ago while masturbating. Since this event he is also had increased right testicular tenderness. He does report that for about the last 5 to 7 years he has had a cyst on his right testicle that is gotten progressively larger in size. He was seen in this emergency department in 2015 for right testicular swelling and found to have an epididymal cyst. He did follow-up with a urologist who recommended a weight full watch and approach. This gentleman denies any sexual activity for the last 15 years. He denies dysuria urgency or frequency. No penile discharge. He is homeless and lives outside but reports that he has resources to follow-up. Review of Systems Constitutional: denies: Fever, Chills Eyes: reports: Reviewed and negative Ears: reports: Reviewed and negative Nose: reports: Reviewed and negative Throat: reports: Reviewed and negative Cardiac: reports: Reviewed and negative Respiratory: reports: Reviewed and negative GI: reports: Reviewed and negative : reports: Testicular pain, Other (bloody ejaculate) Musculoskeletal: reports: Reviewed and negative Neurologic: reports: Reviewed and negative PD PAST MEDICAL HISTORY - Past Medical History Cardiovascular: Hypertension - Past Surgical History Past Surgical History: No General: Appendectomy HEENT: Tonsil/Adenoidectomy - Present Medications Home Medications: Ambulatory Orders Medication Instructions Recorded Confirmed Albuterol Sulfate [Proair Hfa 1 - 2 puffs INH Q4H PRN #1 inhaler 05/17/20 Inhaler] Clindamycin Phos/Benzoyl Perox 1 appful TP BID #2 06/25/20 [Benzaclin Gel 35G Pump] Albuterol Sulf [Ventolin Hfa 1 - 2 puffs INH Q4HR PRN #1 inhaler 06/26/20 Inhaler] Minocycline HCl 100 mg PO BID #20 08/25/20 - Allergies Allergies/Adverse Reactions: Allergies Allergy/AdvReac Type Severity Reaction Status Date / Time No Known Drug Allergies Allergy Verified 08/25/20 12:20 - Social History Does the pt smoke?: Yes Smoking Status: Current every day smoker Does the pt drink ETOH?: Yes Does the pt have substance abuse?: No - Immunizations Immunizations are current?: No - POLST Patient has POLST: No PD ED PE EXPANDED - General General: Disheveled, poorly kept - Cardiac Cardiac: Regular Rate, Radial strong equal, Pedal strong equal, Cap refill < 2 sec - Respiratory Respiratory: Clear to ausultation anna marie. No: Distress, Labored - Abdomen Abdomen: Normal Bowel sounds. No: Tender to palpation - Male Male : Circumcised, Tenderness (Left testes palpated in normal position and lie without tenderness. The right testes is grossly enlarged without swelling or erythema. No fluid collections noted. Mildly tender to touch. No cremasteric present on right testy). No: Skin lesions, Discharge Results - Vitals Vitals: Vital Signs - 24 hr 08/25/20 12:12 Temperature 36.3 C L Heart Rate 68 Respiratory 15 Rate Blood Pressure 136/78 H O2 Saturation 99 Oxygen O2 Source Room air - Labs Labs: Laboratory Tests 08/25/20 12:25 Urine Color YELLOW Urine Clarity CLEAR Urine pH 7.0 Ur Specific [place] 1.020 Urine Protein NEGATIVE Urine Glucose (UA) NEGATIVE Urine Ketones NEGATIVE Urine Occult Blood MODERATE H Urine Nitrite NEGATIVE Urine Bilirubin NEGATIVE Urine Urobilinogen 0.2 (NORMAL) Ur Leukocyte Esterase NEGATIVE Urine RBC 0-5 Urine WBC 0-3 Ur Squamous Epith Cells RARE Squamous Urine Bacteria None Seen Ur Microscopic Review INDICATED Urine Culture Comments NOT INDICATED - Rads (name of study) testes US Radiology: Final report received (Normal-appearing testicles. Increased vascular is seen involving the right epididymis which is suggestive of epididymitis. Bilateral spermatoceles are seen right larger than left. These a re increased in size over time. Small bilateral hydroceles are also seen.) PD MEDICAL DECISION MAKING - ED course Complexity details: reviewed results, re-evaluated patient, d/w patient ED course: 50-year-old homeless gentleman presents the emergency department for evaluation of painful bloody ejaculate 3 days ago while masturbating. He denies any sexual activity in nearly 20 years. He has been seen in the past for right testicular swelling which did show spermatoceles and he did follow-up with urologist in [place] that advised a conservative watch and wait approach. Today his urine shows no signs of infection though there is a small amount of blood. GC is pending. An ultrasound does suggest epididymitis for which this gentleman was given 500 mg of ceftriaxone and will be discharged with a 10-day prescription of doxycycline. We discussed that again he has bilateral spermatoceles which are increasing in size. I will make a recommendation that he continue to follow-up again with urology. The spermatoceles have not seem to bother him over the last few days therefore I suspect acute epididymitis is the source of his pain. Emergent return precautions were discussed for worsening symptoms. Departure - Departure Disposition: 01 Home, Self Care Clinical Impression: Epididymitis, Spermatocele Condition: Stable Record reviewed to determine appropriate education?: Yes Instructions: Epididymitis Dc Prescriptions: Minocycline HCl 100 mg PO BID #20 Comments: Leonard you were seen today in the emergency department for pain in your right testicle with a history of bloody ejaculation and increased swelling. As we discussed the ultrasound is suggestive of infection of your epididymis. To treat this we are giving you a injection of an antibiotic here in the emergency department as well as a 10-day prescription of doxycycline. You do continue to have the spermatoceles or hydroceles of your scrotum and testes on both sides. These are typically painless and in the long-term do not typically need follow-up or intervention unless they become painful. Please c all [facility] where you have been seen out in the past and schedule an appointment for follow-up. [facility] Located in the [address] [address] P: Return to the emergency department if you have increased pain, fevers swelling worsening swelling in your testes.
[2020-08-25 12:42] LABS: BACTERIA,URINE None Seen /HPF (None Seen); RBC,URINE 0-5 /HPF (0-5); SQUAMOUS EPITHELIAL CELL,UR RARE Squamous (<= Few); WBC,URINE 0-3 /HPF (0-3)
--- NOTE | 2020-08-25 14:10 | Ultrasound Report ---
PROCEDURE: Testicle w/Doppler INDICATIONS: bloody ejaculate; right testicular enlargment/pain TECHNIQUE: Real-time scanning was performed of the scrotum and testicles, with image documentation. Color and p ulse Doppler interrogation was performed of both testicles. COMPARISON: 10/27/2014, 06/16/2016 FINDINGS: Right: Testicle is normal in size at 4.5 x 1.7 x 2.8 cm, and homogenous in echotexture. Epididymis is normal in overall size and morphology. There is a multicystic fluid collection seen involving the right hemiscrotum, which measures 9.1 x 4.4 x 5.4 cm. There is also a small right-sided hydrocele. Ov erlying scrotal skin is normal in thickness. Left: Testicle is normal in size at 4.1 x 2 x 2.6 cm, and homogeneous in echotexture. Epididymis is normal in overall size and morphology. Within the left hemiscrotum, there is a multicystic fluid col lection seen that measures 4 x 2.2 x 2.8 cm. A small left-sided hydrocele can also be seen. Overlying scrotal skin is normal in thickness. Doppler: Color and pulse Doppler demonstrate normal and symmetric arterial flow in both testicles. No varicocele can be seen on either side. Increased vascularity can be seen involving the right epidi dymis. IMPRESSION: Normal-appearing testicles. Increased vascular is seen involving the right epididymis, which is suggestive of epididymitis. Bilateral spermatoceles are seen, right larger than left. These have increased in size over time. Small bilateral hydroceles are also seen. Reviewed by: Mahendra Arevalo MD on 08/25/2020 1:08 PM ALVA Approved by: Mahendra Arevalo MD on 08/25/2020 1:08 PM ALVA Station ID: [id number]
[2020-08-25] MEDS ORDERED: cefTRIAXone 500 MG VIAL IM STA (14:22)
[2020-08-25] MEDS ORDERED: LIDOCAINE 1% 2 ML VIAL MC ONE (14:22)
[2020-08-25 20:51] LABS: CHLAMYDIA TRACHOMATIS DNA NEGATIVE (NEGATIVE); NEISSERIA GONORRHOEAE DNA NEGATIVE (NEGATIVE)
== END 2020-08-25 15:10 | disposition home or self-care (01) ==
LOC: ED 12:08
DX: N45.1 Epididymitis (principal); N43.42 Spermatocele of epididymis, multiple; N43.3 Hydrocele, unspecified; I10 Essential (primary) hypertension; F17.200 Nicotine dependence, unspecified, uncomplicated; Z59.0 Homelessness
CPT/HCPCS: 81001; 81003; 87086; 87491; 87591; 87661; 93975; 99284

== ENCOUNTER 2022-04-11 20:46 | Emergency (ER) | payer MEDICAID ==
--- NOTE | 2022-04-11 21:19 | ED Physician Documentation ---
History of Present Illness - Stated complaint Stated Complaint: EXHAUSTED - Chief complaint Chief Complaint: General - History obtained from History obtained from: Patient, EMS - Additonal information Additional information: Patient is a 52-year-old male presenting for evaluation of shortness of breath which she states has been ongoing for 3 years and unchanged today.Patient was unable to get into the [facility] and thus presented to the emergency department. Per EMS report he was declined as he reportedly had head lice last time he was there. Patient denies any Scalp irritation, Pruritus or lice infestation.Patient states that the cold air makes him feel short of breath at times. He does have reported history of COPD. Patient is just asking to have a place to warm up. He denies other concerns or complaints at this time. Review of Systems Constitutional: denies: Fever Cardiac: denies: Chest pain / pressure Respiratory: denies: Cough GI: denies: Abdominal Pain : denies: Dysuria Musculoskeletal: denies: Back pain Neurologic: denies: Headache PD PAST MEDICAL HISTORY - Past Medical History Cardiovascular: Hypertension - Past Surgical History Past Surgical History: No General: Appendectomy HEENT: Tonsil/Adenoidectomy - Present Medications Home Medications: Ambulatory Orders Medication Instructions Recorded Confirmed Albuterol Sulfate [Proair Hfa 1 - 2 puffs INH Q4H PRN #1 inhaler 05/17/20 Inhaler] Clindamycin Phos/Benzoyl Perox 1 appful TP BID #2 06/25/20 [Benzaclin Gel 35G Pump] Albuterol Sulf [Ventolin Hfa 1 - 2 puffs INH Q4HR PRN #1 inhaler 06/26/20 Inhaler] Minocycline HCl 100 mg PO BID #20 08/25/20 Albuterol Sulf [Ventolin Hfa 1 - 2 puffs INH Q4HR PRN #1 each 04/11/22 Inhaler] - Allergies Allergies/Adverse Reactions: Allergies Allergy/AdvReac Type Severity Reaction Status Date / Time No Known Drug Allergies Allergy Verified 08/25/20 12:20 - Social History Does the pt smoke?: Yes Smoking Status: Current every day smoker Does the pt drink ETOH?: Yes Does the pt have substance abuse?: No - Immunizations Immunizations are current?: No - POLST Patient has POLST: No PD ED PE NORMAL - General General: Alert and oriented X 3, No acute distress, Well developed/nourished - HEENT HEENT: Atraumatic - Neck Neck: Supple, no meningeal sign - Cardiac Cardiac: RRR, No murmur - Respiratory Respiratory: No respiratory distress, Clear bilaterally - Abdomen Abdomen: Soft, Non tender - Derm Derm: Warm and dry - Extremities Extremities: No calf tenderness / cord - Neuro Neuro: Alert and oriented X 3, No motor deficit, Normal speech Results - Vitals Vitals: Vital Signs - 24 hr 04/11/22 04/11/22 20:53 22:20 Temperature 36.9 C Heart Rate 94 90 Respiratory 17 15 Rate Blood Pressure 118/71 105/56 L O2 Saturation 99 98 Oxygen O2 Source Room air PD Medical Decision Making - ED course Complexity details: reviewed results ED course: Patient presenting for evaluation of shortness of breath that has been present for 3 years. He reports being asymptomatic here. Patient states that he would just like to get some rest and that his primary reason to be here is because it is warm here.He is homeless and [facility]. His vital signs are stable and his lung sounds are clear. His chest x-ray which I personally reviewed is unremarkable.Patient reports having improvement at times when he has an inhaler so I did prescribe him 1. Patient does not appear septic. Does not have symptoms to suggest cardiac cause to his symptoms. Departure - Departure Disposition: 01 Home, Self Care Clinical Impression: COPD (chronic obstructive pulmonary disease) Condition: Stable Instructions: COPD Dc Prescriptions: Albuterol Sulf [Ventolin Hfa Inhaler] 1 - 2 puffs INH Q4HR PRN #1 each PRN Reason: Shortness Of Air/Wheezing Comments: I have prescribed you an inhaler which may help with your shortness of breath especially when you are outside. Please fill this prescription and use The inhaler as directed.Return to the emergency department with any worsening symptoms or new concerns. Discharge Date/Time: 04/11/22 22:20
[2022-04-11 22:21] VITALS: BP 105/56
--- NOTE | 2022-04-11 22:57 | XRAY Report ---
PROCEDURE: Chest 1 View X-Ray INDICATIONS: SOA TECHNIQUE: One view of the chest was acquired. COMPARISON: Chest x-ray 06/26/2020. FINDINGS: Surgical changes and devices: None. Lungs and pleura: No pleural effusions or pneumothorax. Lungs are clear. Mediastinum: Mediastinal contours appear normal. Heart size is normal. Bones and chest wall: No suspicious bony lesions. Overlying soft tissues appear unremarkable. IMPRESSION: 1. No acute cardiopulmonary disease. Reviewed by: Bar Benitez MD on 04/11/2022 10:56 PM [facility] Approved by: Bar Benitez MD on 04/11/2022 10:56 PM [facility] Station ID: [id number]
== END 2022-04-11 22:20 | disposition home or self-care (01) ==
LOC: EDUNIT# → ED 20:46
DX: J44.9 Chronic obstructive pulmonary disease, unspecified (principal); Z59.00 Homelessness unspecified; I10 Essential (primary) hypertension; F17.200 Nicotine dependence, unspecified, uncomplicated
CPT/HCPCS: 99283; 99284